=== PATIENT | male | born 1960 | race Caucasian/White ===

== ENCOUNTER 2020-04-03 13:35 | Emergency (ER) | payer OTHER ==
[~2020-04-03] VITALS: Ht 180.3 cm; Wt 82.8 kg
[2020-04-03 13:38] VITALS: BP 117/80
--- NOTE | 2020-04-03 13:57 | NUR ---
REPORT FROM NELDA OLIVEROS. PT CARE RESPONSIBILITIES TAKEN OVER.
[2020-04-03] MEDS ORDERED: LIDOCAINE-MPF 1%, 5ML ONE ×2 (14:05→14:55)
[2020-04-03] MEDS ORDERED: DIPH,PERTUSS(ACELL),TET VAC/PF 0.5 ML IM-VACC ONE ×2 (14:05→14:30)
[2020-04-03] MEDS ORDERED: CEFAZOLIN 1,000 MG ONE (14:10)
[2020-04-03] MEDS ORDERED: LIDOCAINE-MPF 1%, 5ML INFIL ONE (14:30)
[2020-04-03] MEDS ORDERED: CEFAZOLIN 1,000 MG IM ONE (14:30)
--- NOTE | 2020-04-03 15:32 | NUR ---
ERP AT BEDSIDE FOR LAC REPAIR. PT TOLERATING WELL. DENIES ANY NEEDS OR CONCERNS AT THIS TIME.
[2020-04-03] MEDS ORDERED: NEOSPORIN OINT. PKT 1 PACKET ONE (15:58)
--- NOTE | 2020-04-03 16:24 | NUR ---
PT WOUND DRESSED WITH BACITRACIN AND A NONSTICK PAD. PT TOLERATED WELL. DISCHARGE INSTRUCTIONS REVIEWED, PT VERBALIZED UNDERSTANDING. DENIES ANY FURTHER NEEDS OR CONCERNS AT THIS TIME.
== END 2020-04-03 16:27 | disposition home or self-care (01) ==
LOC: ED 16:05
DX: S81.021A Laceration with foreign body, right knee, initial encounter (principal); W01.0XXA Fall on same level from slipping, tripping and stumbling without subsequent striking against object, initial encounter; Y93.89 Activity, other specified; Y92.89 Other specified places as the place of occurrence of the external cause; Y99.8 Other external cause status
CPT/HCPCS: 12032; 73564; 90471; 90715; 96372; 99284; J0690; 12042